=== PATIENT | female | born 1985 | race Caucasian/White ===

== ENCOUNTER 2016-07-25 18:45 | Emergency (ER) | payer OTHER ==
[~2016-07-25] VITALS: Ht 152.4 cm; Wt 56.7 kg
[2016-07-25 18:48] VITALS: BP 126/85
--- NOTE | 2016-07-25 18:56 | NUR ---
PT CAME TO ER W/ C/O POUNDING HEADACHE WITH NAUSEA X YESTERDAY AND FLANK PAIN---FEVER OF 89F AT HOME;DENIES DYSURIA, NO NUCHAL RIGIDITY NOTED;DENIES ANY MEDICAL HX;PAINN SCALE OF 10/10;DENIES CP/SOB/VOMITTING;AAOX4;HOB ELEVATED;NEEDS ATTENDED;SAFETY MEASURES DONE;ALL MONITORS IN PLACED;MD MADE AWARE OF PT'S CONDITION.
--- NOTE | 2016-07-25 18:59 | NUR ---
Patient ambulated to bed 5. RN evaluating patient at bedside.
--- NOTE | 2016-07-25 19:13 | NUR ---
Pt report given to AMARIS CH. Transfer of care at this time.
--- NOTE | 2016-07-25 19:15 | NUR ---
REPORT RECREIVED FROM [facility]
--- NOTE | 2016-07-25 19:28 | NUR ---
DR GRAVES TO SEE PT
[2016-07-25] MEDS ORDERED: KETOROLAC 60 MG/2 ML VIAL IM ONE (19:30)
[2016-07-25] MEDS ORDERED: AZITHROMYCIN 250 MG TAB PO ONE (19:30)
[2016-07-25] MEDS ORDERED: NACL 0.9% 1,000 ML IV ONE (19:35)
[2016-07-25 19:58] LABS: BASOPHILS # (AUTO) 0.1 K/uL (0.00-0.22); BASOPHILS % (AUTO) 0.7 % (0.0-2.0); EOSINOPHILS # (AUTO) 0.2 K/uL (0-0.4); EOSINOPHILS % (AUTO) 1.6 % (0.0-4.0); HEMATOCRIT 37.6 % (36-48); HEMOGLOBIN 12.7 g/dL (12.0-16.0); LYMPHOCYTES # (AUTO) 0.6 K/uL (2.5-16.5); LYMPHOCYTES % (AUTO) 4.9 % (20.5-51.1); MEAN CORPUSCULAR HEMOGLOBIN 29 pg (27-31); MEAN CORPUSCULAR HGB CONC 34 g/dL (33-37); MEAN CORPUSCULAR VOLUME 86 fL (80-94); MONOCYTES # (AUTO) 0.8 K/uL (0.8-1.0); MONOCYTES % (AUTO) 6.6 % (1.7-9.3); NEUTROPHILS # (AUTO) 9.7 K/uL (1.8-7.7); NEUTROPHILS % (AUTO) 86.2 % (42.2-75.2); PLATELET COUNT (AUTO) 298 K/uL (140-450); RED BLOOD CELL COUNT(AUTO) 4.38 MIL/uL (4.20-5.40); RED CELL DISTRIBUTION WIDTH 12.7 % (11.6-13.7); WHITE BLOOD COUNT (AUTO) 11.4 K/uL (4.8-10.8)
[2016-07-25 19:59] LABS: ANION GAP 16.1 (8-16); CALCIUM 9.1 mg/dL (8.5-10.1); CARBON DIOXIDE 23.9 mmol/L (21-32); CREATININE 0.9 mg/dL (0.6-1.3)
[2016-07-25] MEDS ORDERED: POTASSIUM CHLORIDE 20% 40 MEQ/15 ML UDC PO ONE ×2 (20:05→20:30)
[2016-07-25 20:07] LABS: ALBUMIN 4.3 g/dL (3.4-5.0); TOTAL BILIRUBIN 0.5 mg/dL (0.0-1.0); TOTAL PROTEIN, SERUM 8.4 g/dL (6.4-8.2)
--- NOTE | 2016-07-25 20:27 | NUR ---
PT HAD EMESIS, DR GRAVES NOTIFIED.
[2016-07-25] MEDS ORDERED: ONDANSETRON 4 MG/2 ML VIAL IVP ONE (20:30)
--- NOTE | 2016-07-25 20:35 | NUR ---
MED GIVEN FOR NAUSEA
[2016-07-25] MEDS ORDERED: IBUPROFEN 600 MG TAB ONE (21:02)
[2016-07-25 21:55] VITALS: BP 103/58
--- NOTE | 2016-07-25 21:55 | NUR ---
Patient discharged with v/s stable. Written and verbal after care instructions given and explained. Patient alert, oriented and verbalized understanding of instructions. Ambulatory with steady gait. All questions addressed prior to discharge. ID band removed. Patient advised to follow up with PMD. Rx of ZOFRAN, AZITHROMYCIN AND MOTRIN given. Patient educated on indication of medication including possible reaction and side effects. Opportunity to ask questions provided and answered.
== END 2016-07-25 21:55 | disposition home or self-care (01) ==
LOC: MED 18:45
DX: J01.90 Acute sinusitis, unspecified (principal); E87.6 Hypokalemia
CPT/HCPCS: 36415; 80053; 81002; 81025; 85025; 96361; 96372; 96374; 99284; J1885; J2405; J7030